=== PATIENT | female | born 1965 | race Two or more races ===

== ENCOUNTER 2020-06-25 07:00 | Inpatient (IN) | payer BC ==
[~2020-06-25] VITALS: Ht 152.4 cm; Wt 69.5 kg
[2020-06-25 08:17] LABS: CALCIUM 9.1 mg/dL (8.5-10.1); CARBON DIOXIDE 27.7 mmol/L (21-32); CHLORIDE SERUM 103 mmol/L (98-107); CREATININE SERUM 0.7 mg/dL (0.6-1.0); GFR1 > 60 mL/min; GLUCOSE SERUM 127 mg/dL (74-106); POTASSIUM SERUM 3.5 mmol/L (3.5-5.1); SODIUM SERUM 139 mmol/L (136-145)
[2020-06-25 08:22] LABS: ALKALINE PHOSPHATASE 125 U/L (46-116); ALT/SGPT 21 U/L (14-59); AST/SGOT 12 U/L (15-37); BILIRUBIN TOTAL 0.4 mg/dL (0.20-1.00); TOTAL PROTEIN, SERUM 7.7 g/dL (6.4-8.2)
[2020-06-25 08:26] LABS: BASOPHIL % 0.3 % (0-2); PLATELET COUNT 254 x10^3mcL (130-400); RED CELL DISTRIBUTION WIDTH 13.2 % (11.5-14.5)
[2020-06-25 13:42] VITALS: BP 121/79
[2020-06-25 17:13] VITALS: BP 118/75
[2020-06-25 22:13] VITALS: BP 121/75
[2020-06-26 04:57] VITALS: BP 103/56
[2020-06-26 07:47] LABS: CALCIUM 8.6 mg/dL (8.5-10.1); CHLORIDE SERUM 107 mmol/L (98-107); CREATININE SERUM 0.6 mg/dL (0.6-1.0); GFR1 > 60 mL/min; GLUCOSE SERUM 91 mg/dL (74-106); POTASSIUM SERUM 4.1 mmol/L (3.5-5.1); SODIUM SERUM 140 mmol/L (136-145)
[2020-06-26 07:56] VITALS: BP 131/84
[2020-06-26 08:37] LABS: BASOPHIL % 0.6 % (0-2); PLATELET COUNT 205 x10^3mcL (130-400); RED CELL DISTRIBUTION WIDTH 13.4 % (11.5-14.5)
[2020-06-26 12:07] VITALS: BP 109/70
[2020-06-26 16:58] VITALS: BP 125/75
[2020-06-26 20:56] VITALS: BP 138/84
[2020-06-27 06:05] VITALS: BP 122/76
[2020-06-27 07:05] LABS: BASOPHIL % 0.5 % (0-2); PLATELET COUNT 218 x10^3mcL (130-400); RED CELL DISTRIBUTION WIDTH 13.4 % (11.5-14.5)
[2020-06-27 07:28] LABS: CARBON DIOXIDE 25.8 mmol/L (21-32); CHLORIDE SERUM 109 mmol/L (98-107); CREATININE SERUM 0.6 mg/dL (0.6-1.0); GFR1 > 60 mL/min; GLUCOSE SERUM 95 mg/dL (74-106); MAGNESIUM 1.8 mg/dL (1.8-2.4); POTASSIUM SERUM 3.9 mmol/L (3.5-5.1); SODIUM SERUM 142 mmol/L (136-145)
[2020-06-27 08:28] VITALS: BP 119/71
[2020-06-27 12:18] VITALS: BP 121/73
[2020-06-27 18:00] VITALS: BP 120/78
[2020-06-27 20:44] VITALS: BP 132/79
[2020-06-28 05:44] VITALS: BP 117/73
[2020-06-28 08:39] VITALS: BP 122/82
[2020-06-28] MEDS ORDERED: MIRUD PO (10:52)
[2020-06-28] MEDS ORDERED: FLAGYL500 MG PO (10:57)
[2020-06-28] MEDS ORDERED: BD LACTINEX1.4 MG PO (10:58)
[2020-06-28 12:32] VITALS: BP 135/82
[2020-06-28 13:03] VITALS: BP 135/82
== END 2020-06-28 16:08 | disposition home or self-care (01) | DRG 392 ==
LOC: ED 07:00 → MU 09:28
PROVIDERS: Emergency Medicine; Internal Medicine; Internal Medicine Gastroenterology; ADMIT Internal Medicine; ATTEND Internal Medicine
PROC: 0DJD8ZZ Inspection of Lower Intestinal Tract, Via Natural or Artificial Opening Endoscopic (ICD-10-PCS; principal; 2020-06-27 08:00)
DX: K52.9 Noninfective gastroenteritis and colitis, unspecified (principal); N39.0 Urinary tract infection, site not specified; D72.829 Elevated white blood cell count, unspecified; J45.909 Unspecified asthma, uncomplicated; K57.90 Diverticulosis of intestine, part unspecified, without perforation or abscess without bleeding; Z79.899 Other long term (current) drug therapy
CPT/HCPCS: 45378; G0378; J0696; J1200; J1610; J1885; J2250; J2310; J2405; J2765; J3010; J3480; J3490; J7030; J7040; U0003